=== PATIENT | female | born 1975 | race Caucasian/White ===

== ENCOUNTER 2017-06-24 15:19 | Emergency (ER) | payer MEDICAID | END 2017-06-24 15:20 | disposition left against medical advice (07) | LOC: ER 15:20 | DX: Z53.21 Procedure and treatment not carried out due to patient leaving prior to being seen by health care provider (principal) ==

== ENCOUNTER 2025-03-01 14:30 | Emergency (ER) | payer MEDICAID ==
[~2025-03-01] VITALS: Ht 162.6 cm; Wt 61.2 kg
[2025-03-01] MEDS ORDERED: ONDANSETRON 4 MG/2 ML VIAL ONE (15:05)
[2025-03-01] MEDS ORDERED: MORPHINE SULFATE 4 MG/1 ML DISP.SYRIN ONE (15:06)
[2025-03-01] MEDS: MORPHINE SULFATE 4 MG/1 ML DISP.SYRIN IV ONE (15:27)
[2025-03-01] MEDS: ONDANSETRON 4 MG/2 ML VIAL IV ONE (15:28)
[2025-03-01 15:36] VITALS: BP 119/72
[2025-03-01] MEDS ORDERED: CYCL5TAB PO (17:29)
[2025-03-01] MEDS ORDERED: LIDO30AD10 TP (17:29)
[2025-03-01] MEDS ORDERED: IBUP-1955 PO (17:29)
[2025-03-01 18:15] VITALS: BP 116/74; TEMP 97.9; O2SAT 97
== END 2025-03-01 18:16 | disposition home or self-care (01) ==
LOC: ER 14:30
DX: S13.4XXA Sprain of ligaments of cervical spine, initial encounter (principal); S16.1XXA Strain of muscle, fascia and tendon at neck level, initial encounter; M54.12 Radiculopathy, cervical region; G89.29 Other chronic pain; R07.89 Other chest pain; Z87.39 Personal history of other diseases of the musculoskeletal system and connective tissue; Z60.2 Problems related to living alone; V43.52XA Car driver injured in collision with other type car in traffic accident, initial encounter; Y93.89 Activity, other specified; Y92.488 Other paved roadways as the place of occurrence of the external cause; Y99.8 Other external cause status
CPT/HCPCS: 99285; 96374; 72125; 71045; 96375; J2405; J2270; A4606; A4663